=== PATIENT | female | born 1965 | race Two or more races ===

== ENCOUNTER 2019-03-23 09:59 | Emergency (ER) | payer SELFPAY ==
[2019-03-23 10:39] VITALS: BP 161/92
== END 2019-03-23 11:43 | disposition home or self-care (01) ==
LOC: ER 09:59
DX: S52.125A Nondisplaced fracture of head of left radius, initial encounter for closed fracture (principal); Z88.0 Allergy status to penicillin; V28.4XXA Motorcycle driver injured in noncollision transport accident in traffic accident, initial encounter; Y93.89 Activity, other specified; Y99.8 Other external cause status; Y92.89 Other specified places as the place of occurrence of the external cause
CPT/HCPCS: 29105; 73080